=== PATIENT | female | born 1945 | race Caucasian/White ===

== ENCOUNTER → 2016-08-17 | Outpatient (CLI) | payer OTHER | LOC: FIMAGING 09:48 | DX: Z12.31 Encounter for screening mammogram for malignant neoplasm of breast (principal) | CPT/HCPCS: G0202 ==

== ENCOUNTER → 2017-05-04 | Outpatient (CLI) | payer OTHER | LOC: FIMAGING 10:13 | PROVIDERS: ATTEND Internal Medicine | DX: M51.84 Other intervertebral disc disorders, thoracic region (principal); M41.85 Other forms of scoliosis, thoracolumbar region ==

== ENCOUNTER → 2017-08-20 | Outpatient (CLI) | payer OTHER | LOC: FIMAGING 09:38 | PROVIDERS: ATTEND Internal Medicine | DX: Z12.31 Encounter for screening mammogram for malignant neoplasm of breast (principal) ==

== ENCOUNTER → 2018-08-21 | Outpatient (CLI) | payer OTHER | LOC: FIMAGING 14:32 | PROVIDERS: ATTEND Internal Medicine | DX: Z12.31 Encounter for screening mammogram for malignant neoplasm of breast (principal) ==